=== PATIENT | female | born 1955 | race Caucasian/White ===

== ENCOUNTER 2021-09-16 09:50 | Emergency (ER) | payer MEDICARE ==
[~2021-09-16 09:50] MED LIST: ACETAMINOPHEN325 MG PO; ALLERGY RELIEF60 MG PO; BIOTIN5000 MCG PO; CLARITIN10 MG PO; COLESTID1 GM PO; DICLOFENAC SOD100 G1 TOP; LIPITOR 10MG TA10 MG PO; LOSARTAN-HCTZ1 EAC2 PO; PLAQUENIL200 MG PO; VITAMIN D31000 UNI1 PO
[2021-09-16 11:19] LABS: BASOPHIL 1.2 % (0-2); EOSINOPHIL 1.6 % (0-7); HCT 41.5 % (37.0-47.0); HGB 14.1 g/dl (12.5-16.0); LYMPHOCYTE 29.1 % (15-48); MCV 94.1 fL (78.0-100.0); MONOCYTE 9.7 % (0-12); MPV 10.3 fL (6.0-9.5); NEUTROPHIL 58.1 % (41-80); NRBC 0; PLT 453 K/uL (150-400); RBC 4.41 M/uL (4.20-5.40); RDW 12.8 % (11.5-14.0); WBC 7.6 K/uL (4.0-10.5)
[2021-09-16 11:27] LABS: ALBUMIN 4.1 g/dL (3.4-5.0); BILIRUBIN - TOTAL 0.6 mg/dL (0.2-1.0); BUN/CREAT RATIO (CALC) 22.6 RATIO; CREATININE 0.53 mg/dL (0.51-0.95); GLOBULIN (CALCULATION) 3.5 g/dL; MAGNESIUM 1.9 mg/dL (1.8-2.4); POTASSIUM 3.2 mmol/L (3.5-5.1); TOTAL PROTEIN 7.6 g/dL (6.4-8.2)
[2021-09-16 11:31] LABS: LACTIC ACID 0.9 mmol/L (0.4-1.9)
[2021-09-16 13:58] LABS: BILIRUBIN NEGATIVE (NEGATIVE); BLOOD TRACE-INTACT Ery/uL (NEGATIVE); CLARITY CLEAR (CLEAR); COLOR YELLOW (YELLOW); GLUCOSE (U) NORMAL (NORMAL); LEUKOCYTES 2+ Leu/uL (NEGATIVE); NITRITE POSITIVE (NEGATIVE); PROTEIN NEGATIVE (NEGATIVE); SPECIFIC GRAVITY <=1.005 (1.001-1.030); UROBILINOGEN 0.2 mg/dL (0.2-1.0)
[2021-09-16 14:15] LABS: URINARY WBC TNTC
[2021-09-16 14:16] LABS: BACTERIA 3+
[2021-09-16] MEDS ORDERED: ONDANSETRON ODT4 MG PO ×2 (15:50→16:01)
[2021-09-16] MEDS ORDERED: IMODIUM2 MG PO ×2 (15:50→16:01)
[2021-09-16] MEDS ORDERED: KEFLEX250 MG PO ×2 (16:00→16:01)
== END 2021-09-16 16:33 | disposition home or self-care (01) ==
LOC: FER 09:50
PROVIDERS: Emergency Medicine
DX: A08.4 Viral intestinal infection, unspecified (principal); I10 Essential (primary) hypertension
CPT/HCPCS: 36415; 80053; 81001; 83605; 83690; 83735; 84145; 84443; 84484; 85025; 93005; J0696; J2405; J7030; Q9967